=== PATIENT | female | born 1965 | race Caucasian/White ===

== ENCOUNTER 2020-02-18 16:14 | Emergency (ER) | payer BC ==
[~2020-02-18] VITALS: Ht 157.5 cm; Wt 56.8 kg
[~2020-02-18 16:14] MED LIST: CYCL-1 PO
[2020-02-18 16:32] VITALS: BP 129/82
[2020-02-18] MEDS ORDERED: HYDROcodone/acetaminophen 5mg/325mg tablet PO ONE (17:20)
[2020-02-18] MEDS ORDERED: ondansetron 4mg rapidly disintigrating tab PO ONE (17:20)
[2020-02-18] MEDS ORDERED: HYDR-3965 PO (17:30)
== END 2020-02-18 17:55 | disposition home or self-care (01) ==
LOC: ER 16:15
DX: S82.65XA Nondisplaced fracture of lateral malleolus of left fibula, initial encounter for closed fracture (principal); J45.909 Unspecified asthma, uncomplicated; Z90.710 Acquired absence of both cervix and uterus; Z88.6 Allergy status to analgesic agent; Z88.1 Allergy status to other antibiotic agents; X50.1XXA Overexertion from prolonged static or awkward postures, initial encounter; Y93.89 Activity, other specified; Y92.89 Other specified places as the place of occurrence of the external cause; Y99.9 Unspecified external cause status
CPT/HCPCS: 73610; 73630; 99284

== ENCOUNTER 2021-01-14 20:39 | Emergency (ER) | payer BC, MEDICAID ==
[~2021-01-14] VITALS: Ht 157.5 cm; Wt 61.0 kg
[2021-01-14 20:44] VITALS: BP 149/84
[2021-01-14] MEDS ORDERED: ketorolac tromethamine 15mg/ml inj. IM ONE (22:45)
[2021-01-14] MEDS ORDERED: IBUP-1984 PO (23:23)
== END 2021-01-14 23:48 | disposition home or self-care (01) ==
LOC: ER 20:40
DX: M25.562 Pain in left knee (principal); M79.672 Pain in left foot; J45.909 Unspecified asthma, uncomplicated; Z90.710 Acquired absence of both cervix and uterus; Z88.8 Allergy status to other drugs, medicaments and biological substances; Z88.1 Allergy status to other antibiotic agents; Z79.899 Other long term (current) drug therapy
CPT/HCPCS: 73564; 73630; 96372; 99284; J1885

== ENCOUNTER 2022-05-17 13:49 | Emergency (ER) | payer SELFPAY | END 2022-05-17 17:45 | disposition left against medical advice (07) | LOC: ER 13:49 | DX: M54.89 Other dorsalgia (principal); Z53.21 Procedure and treatment not carried out due to patient leaving prior to being seen by health care provider ==

== ENCOUNTER 2022-08-20 16:05 | Emergency (ER) | payer BC, MEDICAID ==
[~2022-08-20] VITALS: Ht 157.5 cm; Wt 67.3 kg
[2022-08-20 17:40] VITALS: BP 123/66
== END 2022-08-20 17:44 | disposition home or self-care (01) ==
LOC: ER 16:06
DX: T82.898A Other specified complication of vascular prosthetic devices, implants and grafts, initial encounter (principal); J45.909 Unspecified asthma, uncomplicated; Z88.6 Allergy status to analgesic agent; Z88.1 Allergy status to other antibiotic agents; Z79.899 Other long term (current) drug therapy
CPT/HCPCS: 93971; 99284

== ENCOUNTER 2024-03-16 15:08 | Emergency (ER) | payer BC, MEDICAID, SELFPAY ==
[~2024-03-16] VITALS: Ht 157.5 cm; Wt 67.3 kg
[2024-03-16 15:27] VITALS: TEMP 96.3
[2024-03-16 16:07] LABS: BASOPHILS # (AUTO) 0.1 X10'3 (0-0.2); BASOPHILS % (AUTO) 1.1 % (0-1); EOSINOPHILS # (AUTO) 0.1 X10'3 (0-0.9); HEMATOCRIT 43.6 % (35.0-45.0); HEMOGLOBIN 14.8 g/dl (12.0-16.0); LYMPHOCYTES # (AUTO) 2.6 X10'3 (1.1-4.8); LYMPHOCYTES % (AUTO) 35.2 % (21-51); MEAN CORPUSCULAR HEMOGLOBIN 30.9 PG (27.0-31.0); MEAN CORPUSCULAR HGB CONC 33.9 g/dL (33.0-36.5); MEAN CORPUSCULAR VOLUME 91.1 FL (78-98); MEAN PLATELET VOLUME 8.7 FL (7.4-10.4); MONOCYTES # (AUTO) 0.8 X10'3 (0-0.9); NEUTROPHILS # (AUTO) 3.8 X10'3 (1.8-7.7); NEUTROPHILS % (AUTO) 51.7 % (42-75); PLATELET COUNT 244 X10'3 (140-440); RED BLOOD COUNT 4.78 X10'6 (4.20-5.60); RED CELL DISTRIBUTION WIDTH 13.7 % (11.5-14.5); WHITE BLOOD COUNT 7.3 X10'3 (4.5-11.0)
[2024-03-16 16:23] LABS: BILIRUBIN,URINE NEGATIVE (Neg); CLARITY,URINE SLIGHTLY CLOUDY (Clear); COLOR,URINE YELLOW (Yellow); GLUCOSE, URINE NEGATIVE (Neg); KETONES,URINE NEGATIVE (Neg); LEUKOCYTE ESTERASE ,URINE NEGATIVE (Neg); NITRITES, URINE NEGATIVE (Neg); OCCULT BLOOD,URINE SMALL (Neg); PH,URINE 6.5 (4.8-8.0); PROTEIN,URINE NEGATIVE (Neg); UROBILINOGEN,URINE 0.2 E.U/dL (0.2-1.0)
[2024-03-16 16:34] LABS: MUCUS STRANDS FEW /LPF (Neg); SQUAMOUS EPITHELIAL CELL,UR MANY /LPF (FEW); UA COLLECTION TYPE CLN CATCH MIDSTREAM
[2024-03-16 16:38] LABS: BACTERIA,URINE 1+ /HPF (Neg); WBC,URINE 0-4 /HPF (0-4)
[2024-03-16 16:43] LABS: ALANINE AMINOTRANSFERASE 33 U/L (12-78); ALBUMIN 3.9 G/DL (3.4-5.0); ALKALINE PHOSPHATASE 80 IU/L (46-116); ANION GAP 6 (8-16); ASPARTATE AMINO TRANSFERASE 20 U/L (10-37); BILIRUBIN,DIRECT 0.1 MG/DL (0-0.3); BILIRUBIN,TOTAL 0.3 MG/DL (0.1-1.0); BLOOD UREA NITROGEN 9 MG/DL (7-18); BUN/CREATININE RATIO 12.2 (10.0-20.0); CALCIUM 9.4 MG/DL (8.5-10.1); CHLORIDE 104 MMOL/L (99-107); CREATININE 0.74 MG/DL (0.40-0.90); GLUCOSE 96 MG/DL (70-104); SODIUM 139 MMOL/L (135-145); TOTAL CARBON DIOXIDE 29.1 MMOL/L (24-32); TOTAL PROTEIN 7.8 G/DL (6.4-8.2); eCRCL 64 ML/MIN; eGFR 80 ML/MIN
[2024-03-16] MEDS: normal saline 1000ML IV soln IVB ONE (16:46)
[2024-03-16] MEDS: metoclopramide 5 mg/ml inj IV ONE (16:46)
[2024-03-16] MEDS: diphenhydrAMINE 50 mg/ml inj IV ONE (16:46)
[2024-03-16 17:34] VITALS: BP 127/83; PULSE 73; RESP 17; O2SAT 98
== END 2024-03-16 17:35 | disposition home or self-care (01) ==
LOC: ER 15:08
DX: R51.9 Headache, unspecified (principal); M54.9 Dorsalgia, unspecified; Z88.7 Allergy status to serum and vaccine; Z88.6 Allergy status to analgesic agent; Z91.041 Radiographic dye allergy status; Z79.899 Other long term (current) drug therapy; J45.909 Unspecified asthma, uncomplicated; Z90.710 Acquired absence of both cervix and uterus; B34.9 Viral infection, unspecified
CPT/HCPCS: 36415; 80048; 80076; 81001; 83605; 84145; 85025; 87040; 96361; 96374; 96375; 99284; J1200; J2765; J7030

== ENCOUNTER 2025-07-27 18:23 | Emergency (ER) | payer BC, SELFPAY ==
[~2025-07-27] VITALS: Ht 157.5 cm; Wt 62.0 kg
[2025-07-27 18:33] VITALS: BP 165/83; PULSE 76; RESP 15; O2SAT 98
--- NOTE | 2025-07-27 19:55 | Physician Documentation ---
History of Present Illness ~ Chief Complaint: Eye Pain Stated Complaint: LEFT EYE PAIN Time Seen by MD: 19:44 Primary Medical Doctor: [facility] Patient presents to the emergency room for evaluation of her left eye sent from an outside clinic. Patient has been suffering from some degree of eye discomfort over the past month. She has been put on topical antibiotics without relief. No fevers. No vision changes. That has concern for acute angle glaucoma therefore sent over to the emergency room for evaluation. Medication Reconciliation Allergies: Coded Allergies: COVID-19 (SARS-CoV-2) vaccine, faiza (Unverified Allergy, Unknown, HIVES, 07/27/25) aspirin (Unverified Allergy, Unknown, BLEED AND STOMACH UPSET, 07/27/25) erythromycin base (Unverified Allergy, Unknown, ANAPHYLAXIS, 07/27/25) ketorolac (Unverified Allergy, Unknown, 07/27/25) Scheduled PRN Cyclobenzaprine* (Cyclobenzaprine*), 1 TABLET PO QHS PRN for muscle spasms Past Medical History Past Medical History: Asthma Past Surgical History: hysterectomy Alcohol Use: None Drug Use: none Lives In: Home Review of Systems ROS All review of systems negative except as per HPI Physical Exam Vital Signs: Temperature: 97.6, Source: Temporal, Heart Rate: 76, Respiratory Rate: 15, BP: 165/83, Pulse Oximetry: 98, Weight: 62.000 Physical Exam General: Patient is awake, alert, oriented x4 in no acute distress and well appearing.~ Head: Normocephalic and atraumatic. Eyes: Conjunctival normal. EOMI. PERRL. Very mild phlebitis to left eye without erythema. Pressures in right eye 20 mm of Hg, pressure in left eye 15 mm of Hg ENT: Mucous membranes moist. Neck: Supple, trachea is midline. Chest: Clear to auscultation bilaterally without rales, rhonchi, or wheezes. The re is no accessory muscle use or retractions. Cardiac: RRR without murmurs, gallops, or rubs. Progress Results/Orders Results/Orders Vital Signs 07/27/25 18:33 Temp 97.6 Pulse 76 Resp 15 B/P (MAP) 165/83 Pulse Ox 98 Medical Decision Making Additional information obtaine: N/A Findings Patient presented to the emergency room with eye discomfort in her left. Differentials include but are not limited to acute angle glaucoma, by Ob in cyst, stye, corneal abrasion. Patient has already been cyst for corneal abrasion which was negative. Patient's symptoms has been going on for weeks and he had not believe she was suffering from medical emergency. I pressures are reassuring. I do not suspect temporal arteritis as that has no tenderness to palpation to temporal artery. Ear Diff. Dx: Considerations: Include: Cerumen impaction Eye Diff. Dx: Considerations: Include: Conjuctivitis-viral Nose Diff. Dx: Considerations: Include: Contusion Tooth Diff. Dx: Considerations: Include: Facial cellulitis Throat Diff Dx: Considerations: Include: Hand foot mouth disease Departure Disposition: HOME / SELF CARE / HOMELESS Impression: Primary Impression: Phlebitis Additional Impression: Blepharitis Condition: Stable Discharge Instructions: Blepharitis, [id number] Additional Instructions: Follow up with your licensed real estate broker as soon as possible Referrals: NO PRIMARY CARE PROVIDER (PCP) Signature Scribe Signature: No scribe Attestation: The note accurately reflects work and decisions made by me.John Paul Gonzalez MD 07/27/25 19:55 JOHN PAUL GONZALEZ MD Jul 27, 2025 19:55
[2025-07-27 19:57] VITALS: TEMP 97.6
== END 2025-07-27 19:59 | disposition home or self-care (01) ==
LOC: ER 18:24
DX: I80.8 Phlebitis and thrombophlebitis of other sites (principal); H01.006 Unspecified blepharitis left eye, unspecified eyelid; J45.909 Unspecified asthma, uncomplicated; Z90.710 Acquired absence of both cervix and uterus; Z88.6 Allergy status to analgesic agent; Z88.1 Allergy status to other antibiotic agents; Z88.7 Allergy status to serum and vaccine; Z88.8 Allergy status to other drugs, medicaments and biological substances
CPT/HCPCS: 99282